=== PATIENT | female | born 1960 | race Caucasian/White ===

== ENCOUNTER 2020-11-21 19:15 | Emergency (ER) | payer OTHER ==
[~2020-11-21] VITALS: Ht 162.6 cm; Wt 100.6 kg
[~2020-11-21 19:15] MED LIST: AMIT75TA PO; AMOX875T PO; ASPI325T8 PO; ATOR20TA PO; HCTZ PO; HYDR1TAB10 PO; LEVO75TA PO; LORA0.5T PO; LOSA25TA PO; NAPR-514 PO; OMEP20CA5 PO; ONDA8TAB12 PO; TRAM50TA PO
[2020-11-21 19:20] VITALS: BP 119/52
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
[2020-11-21] MEDS ORDERED: DIPH,PERTUSS(ACELL),TET VAC/PF 0.5 ML SYRINGE. VAX IM ONE (20:00)
[2020-11-21] MEDS ORDERED: LIDOCAINE/EPI/TETRACAINE TOPICAL GEL 3 ML. TP ONE (20:00)
[2020-11-21] MEDS ORDERED: CEPHALEXIN 250 MG CAPSULE PO ONE (20:15)
== END 2020-11-21 20:18 | disposition home or self-care (01) ==
LOC: ER 19:15
DX: S61.211A Laceration without foreign body of left index finger without damage to nail, initial encounter (principal); F41.9 Anxiety disorder, unspecified; F32.9 Major depressive disorder, single episode, unspecified; K21.9 Gastro-esophageal reflux disease without esophagitis; I10 Essential (primary) hypertension; E03.9 Hypothyroidism, unspecified; Z87.440 Personal history of urinary (tract) infections; Z88.2 Allergy status to sulfonamides; Z88.8 Allergy status to other drugs, medicaments and biological substances; W26.8XXA Contact with other sharp object(s), not elsewhere classified, initial encounter; Y93.89 Activity, other specified; Y92.89 Other specified places as the place of occurrence of the external cause; Y99.8 Other external cause status
CPT/HCPCS: 90471; 90715; 99283-25